=== PATIENT | female | born 1940 | race Caucasian/White ===

== ENCOUNTER 2016-08-13 13:01 | Inpatient (IN) | payer OTHER ==
[~2016-08-13] VITALS: Ht 167.6 cm; Wt 81.9 kg
[~2016-08-13 13:01] MED LIST: ACTOS15 MG PO; ATORVASTATIN CA10 MG PO; B COMPLETE1 EACH PO; CENTRUM SILVER1 EAC4 PO; INDAPAMIDE2.5 MG PO; LISINOPRIL20 MG PO; LITE COAT ASPI325 M1 PO; MAGNESIUM250 MG PO; MECLIZINE HCL25 MG PO; METFORMIN HCL1000 MG PO; METOPROLOL TART50 MG PO; SINGULAIR10 MG PO; VITAMIN C1000 MG PO; VITAMIN D22000 UNIT PO; VITAMIN E400 UNIT PO; XANAX0.5 MG PO; XARELTO15 MG PO; ZINC50 M1 PO; ZYRTEC10 M3 PO
[2016-08-13 14:23] LABS: EOSINOPHIL (%) 0.1 % (0-5); HEMATOCRIT 43.8 % (36.0-46.0); IMMATURE GRANULOCYTE (%) 0.2 % (0.0-0.7); IMMATURE GRANULOCYTE COUNT 0.3 K/uL; LYMPHOCYTE COUNT 2.2 K/uL (1.0-2.8); MCH 29.7 PG (29.0-34.0); MCHC 33.1 G/DL (30.0-36.0); MCV 89.8 FL (83-99); MEAN PLAT.VOLUME 12.5 uM^3 (9.5-12.4); MONOCYTE (%) 8.2 % (3-12); MONOCYTE COUNT 1.1 K/uL (0-0.8); NEUTROPHIL COUNT 9.9 K/uL (1.8-6.4); RBC DIS.WIDTH-CV 13.4 % (11.8-14.6); RBC DIS.WIDTH-SD 43.2 % (39-53); RED BLOOD COUNT 4.88 M/uL (3.80-5.20); WHITE BLOOD COUNT 13.2 K/uL (4.1-10.2)
[2016-08-13 14:25] LABS: PLATELET COUNT 116 K/uL (156-360)
[2016-08-13 14:37] LABS: CHLORIDE 100 mEq/L (99-109); SODIUM 138 mEq/L (136-147)
[2016-08-13 14:38] LABS: MAGNESIUM 1.7 mg/dL (1.3-2.7); POTASSIUM 4.6 mEq/L (3.7-5.4)
[2016-08-13 14:39] LABS: GLUCOSE 146 mg/dL (70-99)
[2016-08-13 14:41] LABS: ANION GAP 11 MEQ/L (2-14); TOTAL BILIRUBIN 1.4 mg/dL (0.0-1.0)
[2016-08-13 14:43] LABS: ALKALINE PHOSPHATASE 52 IU/L (3-129); GFR ESTIMATE (CALCULATED) 33 mL/min/; TROP-I INTERPRETATION NEGATIVE; TROPONIN-I 0.16 ng/mL (0.0-0.30)
[2016-08-13 14:44] LABS: UREA NITROGEN (BUN) 33 mg/dL (9-23)
[2016-08-13 14:46] LABS: CREATINE KINASE 49 IU/L (1-294); TOTAL CK 49 IU/L (1-294)
[2016-08-13 14:53] LABS: CK-MB 0.9 ng/mL (0.0-4.9)
[2016-08-13] MEDS ORDERED: ATORVASTATIN CA10 MG PO (15:42)
[2016-08-13] MEDS ORDERED: VITAMIN D31000 UNI2 PO (15:46)
[2016-08-13] MEDS ORDERED: DYMISTA NASAL S23 GM BOTH NARES (15:47)
[2016-08-13] MEDS ORDERED: FUROSEMIDE40 MG PO (15:48)
[2016-08-13] MEDS ORDERED: CARDIZEM120 MG PO (15:48)
[2016-08-13] MEDS ORDERED: CIPRO500 MG PO (15:49)
[2016-08-13 18:57] LABS: TROP-I INTERPRETATION NEGATIVE; TROPONIN-I 0.14 ng/mL (0.0-0.30)
[2016-08-13 19:06] VITALS: BP 135/97
[2016-08-13 20:33] LABS: POINT-OF-CARE METER ID UU13113700
[2016-08-14] VITALS (7 sets, daily range): BP systolic 120–168; BP diastolic 58–79
[2016-08-14 00:55] LABS: TROP-I INTERPRETATION NEGATIVE; TROPONIN-I 0.16 ng/mL (0.0-0.30)
[2016-08-14 07:15] LABS: ANION GAP 10 MEQ/L (2-14); CHLORIDE 101 MEQ/L (99-109); GFR ESTIMATE (CALCULATED) 33 mL/min/; GLUCOSE 120 mg/dL (70-99); POTASSIUM 3.7 MEQ/L (3.7-5.4); SAMPLE HEMOLYSIS CHECK 0; SAMPLE ICTERIC CHECK 0; SAMPLE LIPEMIA CHECK 0; SODIUM 141 MEQ/L (136-147); UREA NITROGEN (BUN) 33 mg/dL (9-23)
[2016-08-14 11:53] LABS: POINT-OF-CARE METER ID UU13113700
[2016-08-14 15:39] LABS: ANION GAP 8 MEQ/L (2-14); CHLORIDE 102 MEQ/L (99-109); GFR ESTIMATE (CALCULATED) 33 mL/min/; GLUCOSE 140 mg/dL (70-99); POTASSIUM 3.9 MEQ/L (3.7-5.4); SAMPLE HEMOLYSIS CHECK 0; SAMPLE ICTERIC CHECK 0; SAMPLE LIPEMIA CHECK 0; SODIUM 138 MEQ/L (136-147); UREA NITROGEN (BUN) 34 mg/dL (9-23)
[2016-08-14 16:19] LABS: POINT-OF-CARE METER ID UU14174216
[2016-08-14 19:10] LABS: ADD MIUA? NO; BILIRUBIN NEGATIVE; BLOOD NEGATIVE; COLOR YELLOW ((YELLOW)); GLUCOSE (STRIP) NEGATIVE; KETONES NEGATIVE; LEUKOCYTES NEGATIVE; NITRITE NEGATIVE; PH, URINE 5.5 (5-8); PROTEIN (STRIP) NEGATIVE; SPECIFIC GRAVITY 1.025 (1.000-1.030); UROBILINOGEN 0.2 MG/DL (0.2-1.0)
[2016-08-14 19:14] LABS: UCUL ADDED? NO
[2016-08-14 21:10] LABS: POINT-OF-CARE METER ID UU14174216
[2016-08-15 04:38] VITALS: BP 152/71
[2016-08-15 06:24] LABS: EOSINOPHIL (%) 3.5 % (0-5); EOSINOPHIL COUNT 0.3 K/uL (0-0.3); HEMATOCRIT 35.2 % (36.0-46.0); IMMATURE GRANULOCYTE (%) 0.1 % (0.0-0.7); LYMPHOCYTE COUNT 2.9 K/uL (1.0-2.8); MCH 29.6 PG (29.0-34.0); MCHC 32.4 G/DL (30.0-36.0); MCV 91.4 FL (83-99); MEAN PLAT.VOLUME 12.5 uM^3 (9.5-12.4); MONOCYTE (%) 12.5 % (3-12); NEUTROPHIL (%) 45.6 % (45-76); NEUTROPHIL COUNT 3.5 K/uL (1.8-6.4); PLATELET COUNT 99 K/uL (156-360); RBC DIS.WIDTH-CV 13.5 % (11.8-14.6)
[2016-08-15 06:25] LABS: RED BLOOD COUNT 3.85 M/uL (3.80-5.20); WHITE BLOOD COUNT 7.6 K/uL (4.1-10.2)
[2016-08-15 06:33] LABS: ANION GAP 8 MEQ/L (2-14); CHLORIDE 106 MEQ/L (99-109); GFR ESTIMATE (CALCULATED) 42 mL/min/; POTASSIUM 3.6 MEQ/L (3.7-5.4); SAMPLE HEMOLYSIS CHECK 0; SAMPLE ICTERIC CHECK 0; SAMPLE LIPEMIA CHECK 0; SODIUM 142 MEQ/L (136-147); UREA NITROGEN (BUN) 27 mg/dL (9-23)
[2016-08-15 06:40] LABS: GLUCOSE 97 mg/dL (70-99)
[2016-08-15 07:00] VITALS: BP 146/71
[2016-08-15 11:08] LABS: POINT-OF-CARE METER ID UU14174216
[2016-08-15 11:15] VITALS: BP 155/71
[2016-08-15 16:00] VITALS: BP 176/73
[2016-08-15 19:34] VITALS: BP 145/70
[2016-08-16 00:13] VITALS: BP 167/76
[2016-08-16 04:07] VITALS: BP 138/72
[2016-08-16 06:50] LABS: EOSINOPHIL (%) 3.9 % (0-5); EOSINOPHIL COUNT 0.3 K/uL (0-0.3); HEMATOCRIT 34.7 % (36.0-46.0); IMMATURE GRANULOCYTE (%) 0.1 % (0.0-0.7); LYMPHOCYTE COUNT 2.7 K/uL (1.0-2.8); MCH 29.1 PG (29.0-34.0); MCV 90.8 FL (83-99); MEAN PLAT.VOLUME 12.4 uM^3 (9.5-12.4); MONOCYTE (%) 11.8 % (3-12); MONOCYTE COUNT 0.9 K/uL (0-0.8); NEUTROPHIL (%) 49.1 % (45-76); NEUTROPHIL COUNT 3.8 K/uL (1.8-6.4); PLATELET COUNT 108 K/uL (156-360); RBC DIS.WIDTH-CV 13.5 % (11.8-14.6); RBC DIS.WIDTH-SD 44.6 % (39-53); RED BLOOD COUNT 3.82 M/uL (3.80-5.20); WHITE BLOOD COUNT 7.8 K/uL (4.1-10.2)
[2016-08-16 07:19] LABS: ANION GAP 6 MEQ/L (2-14); CHLORIDE 107 MEQ/L (99-109); GFR ESTIMATE (CALCULATED) 42 mL/min/; GLUCOSE 99 mg/dL (70-99); SAMPLE HEMOLYSIS CHECK 0; SAMPLE ICTERIC CHECK 0; SAMPLE LIPEMIA CHECK 0; SODIUM 141 MEQ/L (136-147); UREA NITROGEN (BUN) 20 mg/dL (9-23)
[2016-08-16 08:11] LABS: POINT-OF-CARE USER ID ENVKC36
[2016-08-16 09:07] VITALS: BP 160/86
[2016-08-16 11:55] LABS: POINT-OF-CARE METER ID UU13113781; POINT-OF-CARE USER ID ENVKC36
== END 2016-08-16 12:03 | disposition home or self-care (01) | DRG 309 ==
LOC: EME 13:01 → EDOF 17:18 → 5WEST 18:54 → 4EAST 08-14 11:41
PROVIDERS: Emergency Medicine; Hospitalist; Internal Medicine
DX: I48.0 Paroxysmal atrial fibrillation (principal); N17.9 Acute kidney failure, unspecified; W19.XXXA Unspecified fall, initial encounter; S30.0XXA Contusion of lower back and pelvis, initial encounter; I12.9 Hypertensive chronic kidney disease with stage 1 through stage 4 chronic kidney disease, or unspecified chronic kidney disease; N18.3 Chronic kidney disease, stage 3 (moderate); E86.0 Dehydration; D72.829 Elevated white blood cell count, unspecified; D69.49 Other primary thrombocytopenia; E78.5 Hyperlipidemia, unspecified; R41.82 Altered mental status, unspecified; E87.6 Hypokalemia; R26.9 Unspecified abnormalities of gait and mobility; Y92.013 Bedroom of single-family (private) house as the place of occurrence of the external cause; E11.22 Type 2 diabetes mellitus with diabetic chronic kidney disease; Y99.9 Unspecified external cause status
CPT/HCPCS: 36415; 70450; 71020; 72170; 80048; 80048 91; 80053; 80061; 81003; 82550; 82553; 82948; 83036; 83735; 83970; 84100; 84443; 84484; 85025; 93005; 99281; 99285; G0378; J1815; J2405; J7030; S0028

== ENCOUNTER 2016-10-20 17:27 | Emergency (ER) | payer OTHER ==
[~2016-10-20] VITALS: Ht 167.6 cm; Wt 82.7 kg
[~2016-10-20 17:27] MED LIST changes: +CARDIZEM120 MG PO; +CIPRO500 MG PO; +DYMISTA NASAL S23 GM BOTH NARES; +FUROSEMIDE40 MG PO; +VITAMIN D31000 UNI2 PO
[2016-10-20 18:45] LABS: EOSINOPHIL (%) 3.3 % (0-5); EOSINOPHIL COUNT 0.3 K/uL (0-0.3); HEMATOCRIT 37.1 % (36.0-46.0); IMMATURE GRANULOCYTE (%) 0.1 % (0.0-0.7); INSTRUMENT ABS NEUTROPHIL CT 4.1 K/uL; LYMPHOCYTE COUNT 3.4 K/uL (1.0-2.8); MCH 28.7 PG (29.0-34.0); MCHC 32.1 G/DL (30.0-36.0); MCV 89.6 FL (83-99); MONOCYTE (%) 9.6 % (3-12); MONOCYTE COUNT 0.8 K/uL (0-0.8); NEUTROPHIL (%) 47.7 % (45-76); NEUTROPHIL COUNT 4.1 K/uL (1.8-6.4); RBC DIS.WIDTH-CV 13.1 % (11.8-14.6); RED BLOOD COUNT 4.14 M/uL (3.80-5.20); WHITE BLOOD COUNT 8.7 K/uL (4.1-10.2)
[2016-10-20 18:58] LABS: CHLORIDE 107 mEq/L (99-109); POTASSIUM 4.2 mEq/L (3.7-5.4); SODIUM 141 mEq/L (136-147)
[2016-10-20 19:00] LABS: GLUCOSE 79 mg/dL (70-99)
[2016-10-20 19:01] LABS: ANION GAP 9 MEQ/L (2-14)
[2016-10-20 19:02] LABS: TOTAL BILIRUBIN 1.1 mg/dL (0.0-1.0)
[2016-10-20 19:04] LABS: ALKALINE PHOSPHATASE 47 IU/L (3-129); GFR ESTIMATE (CALCULATED) 57 mL/min/
[2016-10-20 19:05] LABS: UREA NITROGEN (BUN) 15 mg/dL (9-23)
[2016-10-20 19:31] LABS: SAMPLE HEMOLYSIS CHECK 0; SAMPLE ICTERIC CHECK 0; SAMPLE LIPEMIA CHECK 0
[2016-10-20 19:37] LABS: LACTATE DEHYDROGENASE 180 IU/L (20-246)
[2016-10-20 19:51] VITALS: BP 209/73
[2016-10-20 21:40] LABS: IMM.PLATELET FRACTION 11.9 (1-7); MEAN PLAT.VOLUME 12.4 uM^3 (9.5-12.4); PLATELET COUNT 32 K/uL (156-360)
== END 2016-10-20 19:56 | disposition home or self-care (01) ==
LOC: EME 17:27
PROVIDERS: Emergency Medicine
DX: I10 Essential (primary) hypertension (principal); D69.6 Thrombocytopenia, unspecified; E11.9 Type 2 diabetes mellitus without complications; E78.5 Hyperlipidemia, unspecified
CPT/HCPCS: 80053; 83615; 85025; 99281; 99283

== ENCOUNTER 2016-10-23 17:50 | Emergency (ER) | payer OTHER ==
[~2016-10-23] VITALS: Ht 167.6 cm; Wt 79.3 kg
[2016-10-23 18:47] LABS: INTER. NORMALIZED RATIO 1.3; PROTHROMBIN TIME 13.4 (9.2-11.2); PTT 28.7 (25-32)
[2016-10-23 18:48] LABS: CHLORIDE 99 mEq/L (99-109); POTASSIUM 4.1 mEq/L (3.7-5.4); SODIUM 138 mEq/L (136-147)
[2016-10-23 18:51] LABS: ANION GAP 15 MEQ/L (2-14)
[2016-10-23 18:53] LABS: GFR ESTIMATE (CALCULATED) 51 mL/min/; GLUCOSE 129 mg/dL (70-99)
[2016-10-23 18:54] LABS: UREA NITROGEN (BUN) 18 mg/dL (9-23)
[2016-10-23 18:58] LABS: TROP-I INTERPRETATION NEGATIVE; TROPONIN-I < 0.01 ng/mL (0.0-0.30)
[2016-10-23 19:01] LABS: HEMATOCRIT 40.6 % (36.0-46.0); MCH 28.9 PG (29.0-34.0); MCHC 32.8 G/DL (30.0-36.0); MCV 88.1 FL (83-99); RBC DIS.WIDTH-CV 12.9 % (11.8-14.6); RBC DIS.WIDTH-SD 41.7 % (39-53); RED BLOOD COUNT 4.61 M/uL (3.80-5.20); WHITE BLOOD COUNT 9.8 K/uL (4.1-10.2)
[2016-10-23 19:19] LABS: MEAN PLAT.VOLUME 12.9 uM^3 (9.5-12.4)
[2016-10-23 19:20] LABS: PLATELET COUNT 46 K/uL (156-360)
[2016-10-23] MEDS ORDERED: ZOFRAN ODT8 MG PO (20:36)
[2016-10-23] MEDS ORDERED: PROTONIX40 MG PO (20:36)
[2016-10-23 20:47] VITALS: BP 162/73
== END 2016-10-23 20:51 | disposition home or self-care (01) ==
LOC: EME 17:50
DX: R11.10 Vomiting, unspecified (principal); I48.91 Unspecified atrial fibrillation; E11.9 Type 2 diabetes mellitus without complications; E78.5 Hyperlipidemia, unspecified; I10 Essential (primary) hypertension
CPT/HCPCS: 71020; 80048; 84484; 85027; 85610; 85730; 93005; 99281; 99284

== ENCOUNTER 2017-01-20 18:44 | Inpatient (IN) | payer OTHER ==
[~2017-01-20] VITALS: Ht 165.1 cm; Wt 89.0 kg
[~2017-01-20 18:44] MED LIST changes: +PROTONIX40 MG PO; +ZOFRAN ODT8 MG PO
[2017-01-20 19:28] LABS: EOSINOPHIL (%) 0.1 % (0-5); HEMATOCRIT 41.8 % (36.0-46.0); IMMATURE GRANULOCYTE (%) 2.3 % (0.0-0.7); IMMATURE GRANULOCYTE COUNT 0.3 K/uL; INSTRUMENT ABS NEUTROPHIL CT 10.9 K/uL; LYMPHOCYTE COUNT 2.9 K/uL (1.0-2.8); MCH 29.1 PG (29.0-34.0); MCHC 31.8 G/DL (30.0-36.0); MCV 91.5 FL (83-99); MONOCYTE (%) 2.7 % (3-12); MONOCYTE COUNT 0.4 K/uL (0-0.8); NEUTROPHIL (%) 74.7 % (45-76); NEUTROPHIL COUNT 10.9 K/uL (1.8-6.4); RBC DIS.WIDTH-CV 15.9 % (11.8-14.6); RBC DIS.WIDTH-SD 52.7 % (39-53); RED BLOOD COUNT 4.57 M/uL (3.80-5.20); WHITE BLOOD COUNT 14.6 K/uL (4.1-10.2)
[2017-01-20 19:31] LABS: PLATELET COUNT 169 K/uL (156-360)
[2017-01-20 19:44] LABS: CHLORIDE 102 mEq/L (99-109); POTASSIUM 4.8 mEq/L (3.7-5.4); SODIUM 137 mEq/L (136-147)
[2017-01-20 19:45] LABS: MAGNESIUM 1.5 mg/dL (1.3-2.7)
[2017-01-20 19:46] LABS: GLUCOSE 292 mg/dL (70-99)
[2017-01-20 19:48] LABS: ANION GAP 13 MEQ/L (2-14)
[2017-01-20 19:50] LABS: GFR ESTIMATE (CALCULATED) 39 mL/min/
[2017-01-20 19:51] LABS: UREA NITROGEN (BUN) 22 mg/dL (9-23)
[2017-01-20 19:52] LABS: TROP-I INTERPRETATION NEGATIVE; TROPONIN-I 0.01 ng/mL (0.0-0.30)
[2017-01-20 20:59] LABS: ADD MIUA? NO; BILIRUBIN NEGATIVE; BLOOD NEGATIVE; COLOR YELLOW ((YELLOW)); GLUCOSE (STRIP) >=500; KETONES 5; LEUKOCYTES NEGATIVE; NITRITE NEGATIVE; PROTEIN (STRIP) NEGATIVE; SPECIFIC GRAVITY 1.014 (1.000-1.030); UCUL ADDED? NO; UROBILINOGEN 0.2 MG/DL (0.2-1.0)
[2017-01-20] MEDS ORDERED: CARTIA XT120 MG PO (21:40)
[2017-01-20] MEDS ORDERED: METFORMIN HCL1000 MG PO (21:41)
[2017-01-20] MEDS ORDERED: NOVOLOG 10100 UNITS/ SC (21:42)
[2017-01-20] MEDS ORDERED: PREDNISONE10 MG PO (21:42)
[2017-01-20] MEDS ORDERED: ALPRAZOLAM0.5 MG PO (21:42)
[2017-01-20] MEDS ORDERED: NYSTATIN100000 UN1 PO (21:42)
[2017-01-20] MEDS ORDERED: LANTUS 3 M100 UNITS1 SC (21:43)
[2017-01-21 02:15] VITALS: BP 127/85
[2017-01-21 02:33] LABS: TROP-I INTERPRETATION NEGATIVE; TROPONIN-I 0.01 ng/mL (0.0-0.30)
[2017-01-21 02:56] LABS: POINT-OF-CARE METER ID UU13113698
[2017-01-21 04:51] VITALS: BP 120/68
[2017-01-21 07:20] VITALS: BP 11/65
[2017-01-21 08:01] LABS: MCH 30.8 PG (29.0-34.0); MCHC 33.2 G/DL (30.0-36.0); MCV 92.9 FL (83-99); MEAN PLAT.VOLUME 11.7 uM^3 (9.5-12.4); PLATELET COUNT 145 K/uL (156-360); RBC DIS.WIDTH-CV 15.9 % (11.8-14.6); RBC DIS.WIDTH-SD 54.4 % (39-53); RED BLOOD COUNT 4.09 M/uL (3.80-5.20); WHITE BLOOD COUNT 13.8 K/uL (4.1-10.2)
[2017-01-21 08:25] LABS: ANION GAP 8 MEQ/L (2-14); CHLORIDE 108 MEQ/L (99-109); GFR ESTIMATE (CALCULATED) 51 mL/min/; GLUCOSE 106 mg/dL (70-99); SAMPLE HEMOLYSIS CHECK 0; SAMPLE ICTERIC CHECK 0; SAMPLE LIPEMIA CHECK 0; SODIUM 140 MEQ/L (136-147); UREA NITROGEN (BUN) 17 mg/dL (9-23)
[2017-01-21 09:19] LABS: TROP-I INTERPRETATION NEGATIVE; TROPONIN-I 0.03 ng/mL (0.0-0.30)
[2017-01-21 16:00] VITALS: BP 107/73
[2017-01-21 16:53] LABS: POINT-OF-CARE METER ID UU13113781; POINT-OF-CARE USER ID NUTSLF44
[2017-01-21 19:56] VITALS: BP 110/82
[2017-01-21 20:47] LABS: POINT-OF-CARE METER ID UU13113698
[2017-01-22] VITALS (7 sets, daily range): BP systolic 114–151; BP diastolic 65–98
[2017-01-22 08:13] LABS: POINT-OF-CARE USER ID NUTSLF44
[2017-01-22 13:05] LABS: POINT-OF-CARE USER ID NUTSLF44
[2017-01-22 16:21] LABS: POINT-OF-CARE METER ID UU13113781; POINT-OF-CARE USER ID NUTSLF44
[2017-01-23 03:28] VITALS: BP 128/78
[2017-01-23 11:11] VITALS: BP 108/65
[2017-01-23 11:18] LABS: POINT-OF-CARE METER ID UU13113781
[2017-01-23 16:38] VITALS: BP 120/90
[2017-01-23 18:55] VITALS: BP 135/88
[2017-01-23 19:54] VITALS: BP 125/94
[2017-01-23 20:25] LABS: POINT-OF-CARE METER ID UU14174216
[2017-01-24] VITALS (7 sets, daily range): BP systolic 14–137; BP diastolic 77–115
[2017-01-24 11:11] LABS: POINT-OF-CARE METER ID UU13113781
[2017-01-24 16:32] LABS: POINT-OF-CARE METER ID UU14174216
[2017-01-24 18:20] LABS: EOSINOPHIL (%) 0.2 % (0-5); HEMATOCRIT 39.2 % (36.0-46.0); IMMATURE GRANULOCYTE (%) 2.4 % (0.0-0.7); IMMATURE GRANULOCYTE COUNT 0.3 K/uL; INSTRUMENT ABS NEUTROPHIL CT 9.4 K/uL; LYMPHOCYTE COUNT 3.2 K/uL (1.0-2.8); MCH 30.2 PG (29.0-34.0); MCHC 32.4 G/DL (30.0-36.0); MCV 93.1 FL (83-99); MEAN PLAT.VOLUME 11.5 uM^3 (9.5-12.4); MONOCYTE (%) 4.2 % (3-12); MONOCYTE COUNT 0.6 K/uL (0-0.8); NEUTROPHIL (%) 69.7 % (45-76); NEUTROPHIL COUNT 9.4 K/uL (1.8-6.4); PLATELET COUNT 153 K/uL (156-360); RBC DIS.WIDTH-CV 16.3 % (11.8-14.6); RBC DIS.WIDTH-SD 55.5 % (39-53); RED BLOOD COUNT 4.21 M/uL (3.80-5.20); WHITE BLOOD COUNT 13.5 K/uL (4.1-10.2)
[2017-01-24 21:02] LABS: POINT-OF-CARE METER ID UU14174216
[2017-01-25 05:40] VITALS: BP 121/89
[2017-01-25 05:53] LABS: EOSINOPHIL (%) 1.2 % (0-5); EOSINOPHIL COUNT 0.2 K/uL (0-0.3); HEMATOCRIT 37.1 % (36.0-46.0); IMMATURE GRANULOCYTE COUNT 0.3 K/uL; INSTRUMENT ABS NEUTROPHIL CT 6.8 K/uL; LYMPHOCYTE COUNT 4.1 K/uL (1.0-2.8); MCH 29.9 PG (29.0-34.0); MCHC 32.6 G/DL (30.0-36.0); MCV 91.6 FL (83-99); MEAN PLAT.VOLUME 11.4 uM^3 (9.5-12.4); MONOCYTE (%) 7.2 % (3-12); MONOCYTE COUNT 0.9 K/uL (0-0.8); NEUTROPHIL (%) 55.7 % (45-76); NEUTROPHIL COUNT 6.8 K/uL (1.8-6.4); PLATELET COUNT 135 K/uL (156-360); RBC DIS.WIDTH-CV 15.9 % (11.8-14.6); RBC DIS.WIDTH-SD 52.9 % (39-53); RED BLOOD COUNT 4.05 M/uL (3.80-5.20); WHITE BLOOD COUNT 12.2 K/uL (4.1-10.2)
[2017-01-25 06:40] LABS: ANION GAP 5 MEQ/L (2-14); CHLORIDE 108 MEQ/L (99-109); GFR ESTIMATE (CALCULATED) 51 mL/min/; GLUCOSE 117 mg/dL (70-99); POTASSIUM 4.5 MEQ/L (3.7-5.4); SAMPLE HEMOLYSIS CHECK 0; SAMPLE ICTERIC CHECK 0; SAMPLE LIPEMIA CHECK 0; SODIUM 143 MEQ/L (136-147); UREA NITROGEN (BUN) 20 mg/dL (9-23)
[2017-01-25 07:40] VITALS: BP 123/96
[2017-01-25 12:25] VITALS: BP 128/64
[2017-01-25 12:43] LABS: POINT-OF-CARE METER ID UU13113781
[2017-01-25 16:13] VITALS: BP 131/60
[2017-01-25] MEDS ORDERED: FLECAINIDE ACET50 MG PO (16:16)
[2017-01-25] MEDS ORDERED: METOPROLOL TART50 MG PO (16:17)
== END 2017-01-25 17:58 | disposition home or self-care (01) | DRG 309 ==
LOC: EME 18:44 → 4EAST 22:50 → EDOF 22:50 → 4EAST 01-21 02:05
PROVIDERS: Emergency Medicine; Hospitalist; Internal Medicine; Internal Medicine Hematology & Oncology
PROC: 5A2204Z Restoration of Cardiac Rhythm, Single (ICD-10-PCS; principal; 2017-01-25)
DX: I48.1 Persistent atrial fibrillation (principal); D69.6 Thrombocytopenia, unspecified; D72.829 Elevated white blood cell count, unspecified; E11.9 Type 2 diabetes mellitus without complications; I12.9 Hypertensive chronic kidney disease with stage 1 through stage 4 chronic kidney disease, or unspecified chronic kidney disease; N18.3 Chronic kidney disease, stage 3 (moderate); E11.22 Type 2 diabetes mellitus with diabetic chronic kidney disease; E78.5 Hyperlipidemia, unspecified; R00.2 Palpitations; I95.9 Hypotension, unspecified; D47.3 Essential (hemorrhagic) thrombocythemia; N17.9 Acute kidney failure, unspecified; T38.0X5A Adverse effect of glucocorticoids and synthetic analogues, initial encounter; Z82.49 Family history of ischemic heart disease and other diseases of the circulatory system; Z79.01 Long term (current) use of anticoagulants
CPT/HCPCS: 71010; 80048; 81003; 82272; 82948; 83735; 83880; 84443; 84484; 85025; 85027; 87086; 93005; 99281; 99285; J1160; J1815; J3475; J7030; J7050; J7512